=== PATIENT | female | born 1990 | race Caucasian/White ===

== ENCOUNTER 2017-03-15 20:30 | Emergency (ER) | payer MEDICAID ==
[~2017-03-15] VITALS: Ht 154.9 cm; Wt 103.3 kg
[2017-03-15] MEDS ORDERED: ACET325T9 PO (20:49)
--- NOTE | 2017-03-15 22:15 | PHYS DOC ---
Past History Past Medical History: Hypothyroid Past Surgical History: No Surgical History Alcohol Use: None Drug Use: None Adult General Chief Complaint Chief Complaint: FOREIGNBODY EAR HPI HPI 26-year-old female who states she had a bug crawl in her right ear and subsequently in October now presents the emergency department complaining of having a bug in her ear for 4 months. Patient states she put a Q-tip in her ear today and he came out with a bug leg on it, so she decided it was time to come to the emergency department to get it removed. Patient has no symptoms and it only became an issue today because she saw what she thought was a bug's leg on the Q-tip after using it. She denies drainage or pain Review of Systems Review of Systems Constitutional: Denies fever or chills [] Eyes: Denies change in visual acuity, redness, or eye pain [] HENT: Denies nasal congestion or sore throat [] Respiratory: Denies cough or shortness of breath [] Cardiovascular: No additional information not addressed in HPI [] GI: Denies abdominal pain, nausea, vomiting, bloody stools or diarrhea [] : Denies dysuria or hematuria [] Musculoskeletal: Denies back pain or joint pain [] Integument: Denies rash or skin lesions [] Neurologic: Denies headache, focal weakness or sensory changes [] Endocrine: Denies polyuria or polydipsia [] Allergies Allergies Allergies Coded Allergies Type Severity Reaction Last Updated Verified No Known Drug Allergies 03/15/17 No Physical Exam Physical Exam Alert well-appearing patient no acute distress. Left EAC and TM normal. Right EAC with what appears to be a small insect cockroach foreign body but no erythema or drainage or exudate within the external auditory canal. Normal TM. Insect is against the TM and impacted with wax and appears hardened. Insect appears embedded in chronic cerumen impaction. No drainage from the EAC and nontender right mastoid. Supple neck with no nodes Constitutional: Well developed, well nourished, no acute distress, non-toxic appearance. [] HENT: Normocephalic, atraumatic,oropharynx moist, no oral exudates, nose normal. [] Eyes: PERRLA, EOMI, conjunctiva normal, no discharge. [] Neck: Normal range of motion, no tenderness, supple, no stridor. [] Cardiovascular:Heart rate regular rhythm, no murmur [] Lungs & Thorax: Bilateral breath sounds clear to auscultation [] Abdomen: Bowel sounds normal, soft, no tenderness, no masses, no pulsatile masses. [] Skin: Warm, dry, no erythema, no rash. [] Back: No tenderness, no CVA tenderness. [] Extremities: No tenderness, no cyanosis, no clubbing, ROM intact, no edema. [] Neurologic: Alert and oriented X 3, normal motor function, normal sensory function, no focal deficits noted. [] Psychologic: Affect normal, judgement normal, mood normal. [] Current Patient Data Vital Signs Vital Signs Date Time Temp Pulse Resp B/P (MAP) Pulse Ox O2 Delivery O2 Flow Rate FiO2 03/15/17 20:30 98.6 75 20 98 Room Air EKG EKG [] Radiology/Procedures Radiology/Procedures [] Course & Med Decision Making Course & Med Decision Making Pertinent Labs and Imaging studies reviewed. (See chart for details) Patient with an insect in her ear for 4 months as well as cerumen impaction against the TM. Emergent removal not clinically indicated and position of impaction against TM at high risk for potential damage during procedure. Referred patient to ENT for evaluation outpatient treatment in the office with specialty equipment and the benefit of specialty care. No further workup or treatment indicated in the emergency department. Patient and significant other agree with outpatient follow-up and strict return precautions given [] Dragon Disclaimer Dragon Disclaimer This chart was dictated in whole or in part using Voice Recognition software in a busy, high-work load, and often noisy Emergency Department environment. It may contain unintended and wholly unrecognized errors or omissions. Departure Departure: Impression: Primary Impression: Foreign body of ear, right Disposition: HOME, SELF-CARE Condition: STABLE Referrals: PCP,NO (PCP) Additional Instructions: You have an insect foreign body against your eardrum. As you described, it's been there since October. There are no signs of infection of your external ear canal. Follow-up with ear nose and throat for removal of the insect as well as the wax around it. Call [facility] ear nose and throat [place] in the morning at [phone] for appointment. NORMAN LOZANO MD Mar 15, 2017 22:15
[2017-03-15 22:25] VITALS: BP 110/70
== END 2017-03-15 22:25 | disposition home or self-care (01) ==
LOC: ER 20:30
DX: T16.1XXA Foreign body in right ear, initial encounter (principal); E03.9 Hypothyroidism, unspecified; X58.XXXA Exposure to other specified factors, initial encounter; Y93.89 Activity, other specified; Y99.8 Other external cause status; Y92.89 Other specified places as the place of occurrence of the external cause
CPT/HCPCS: 99281

== ENCOUNTER 2017-04-19 13:30 | Emergency (ER) | payer SELFPAY ==
[~2017-04-19] VITALS: Ht 160 cm; Wt 104.8 kg
[~2017-04-19 13:30] MED LIST: ACET325T9 PO
[2017-04-19 13:50] VITALS: BP 128/70
[2017-04-19] MEDS ORDERED: HYDROcodone/APAP 5/325MG 1 TAB TABLET PO ONE (14:45)
[2017-04-19] MEDS ORDERED: LIDOCAINE 1% Multi-Dose 20 ML VIAL. IJ ONE (14:45)
--- NOTE | 2017-04-19 14:53 | PHYS DOC ---
Past History Past Medical History: No Pertinent History Past Surgical History: No Surgical History Additional Smoking Information: 1pack/day Alcohol Use: None Drug Use: None Adult General Chief Complaint Chief Complaint: ABSCESS HPI HPI Patient is a 26] year old female] who presents with [skin abscess.] Patient complaining of erythema and pain in left axillary area for the last 2 days and drainage of pus since this morning with severe pain. Patient states she had the same problem about 6 months ago and had drainage of abscess in [place]. Patient did not have confirmed diagnoses of MRSA. Patient denies fever and chills, focal neuro deficit, sick contacts, . Review of Systems Review of Systems Constitutional: Denies fever or chills [] Eyes: Denies change in visual acuity, redness, or eye pain [] HENT: Denies nasal congestion or sore throat [] Respiratory: Denies cough or shortness of breath [] Cardiovascular: No additional information not addressed in HPI [] GI: Denies abdominal pain, nausea, vomiting, bloody stools or diarrhea [] : Denies dysuria or hematuria [] Musculoskeletal: Denies back pain or joint pain [] Integument: Reports skin lesions /abscess[] Neurologic: Denies headache, focal weakness or sensory changes [] Endocrine: Denies polyuria or polydipsia [] All other systems were reviewed and found to be within normal limits, except as documented in this note. Current Medications Current Medications Current Medications Medications (Trade) Dose Ordered Sig/Geno Start Time Stop Time Status Last Admin Dose Admin Acetaminophen/ Hydrocodone Bitart (Lortab 5/325) 2 tab 1X ONCE 04/19/17 14:45 04/19/17 14:46 UNV Lidocaine HCl 20 ml 1X ONCE 04/19/17 14:45 04/19/17 14:46 UNV Allergies Allergies Allergies Coded Allergies Type Severity Reaction Last Updated Verified No Known Drug Allergies 03/15/17 No Physical Exam Physical Exam General: Moderate distress, anxious, non-toxic appearance, morbidly obese. [] HENT: Normocephalic, atraumatic, bilateral external ears normal, oropharynx moist, no oral exudates, nose normal. [] Eyes: PERRLA, EOMI, conjunctiva normal, no discharge. [] Neck: Normal range of motion, no tenderness, supple, no stridor. [] Cardiovascular:Heart rate regular rhythm, no murmur [] Lungs & Thorax: Bilateral breath sounds clear to auscultation [] Skin: 5 x 5 cm left subaxillary erythema and induration with central puncture wound and drainage of pus Back: No tenderness, no CVA tenderness. [] Extremities: No tenderness, no cyanosis, no clubbing, ROM intact, no edema. [] Neurologic: Alert and oriented X 3, normal motor function, normal sensory function, no focal deficits noted. [] Psychologic: anxious Current Patient Data Vital Signs Vital Signs Date Time Temp Pulse Resp B/P (MAP) Pulse Ox O2 Delivery O2 Flow Rate FiO2 04/19/17 13:50 98.1 85 16 97 Room Air EKG EKG [] Radiology/Procedures Radiology/Procedures [] Course & Med Decision Making Course & Med Decision Making [] Dragon Disclaimer Dragon Disclaimer This electronic medical record was generated, in whole or in part, using a voice recognition dictation system. Departure Departure: Impression: Primary Impression: Abscess of axillary region Additional Impression: Suspected carrier of methicillin resistant Staphylococcus aureus (MRSA) Disposition: HOME, SELF-CARE (At 1624) Condition: IMPROVED Referrals: PCP,NO (PCP) Additional Instructions: Return to the emergency room in 48 hours for recheck the wound and removing the packing Scripts Hydrocodone Bit/Acetaminophen (NORCO 5-325 TABLET) 1 Each Tablet 1-2 TAB PO Q4-6HRS for 5 Days, #15 TAB Prov: ANJALI VILA MD 04/19/17 Sulfamethoxazole/Trimethoprim (BACTRIM DS TABLET) 1 Each Tablet 1 TAB PO BID, #14 TAB Prov: ANJALI VILA MD 04/19/17 Incision and Drainage Indication: [INDICATION:] Subaxillary abscess left side Procedure: The patient was positioned appropriately and the skin over the incision site was [PREP FOR PROCEDURE:]. Local anesthesia was [ANESTHESIA:]. Lidocaine 1% 5 ml An incision was then made over the [INCISION SITE:]left subaxillary area and [DRAINAGE AMT:] moderate amount of pus material was expressed. Loculations were cleaned [LOCULATIONS:]. The drainage cavity was then irrigated with normal saline[CAVITY DISP:]. The patients tetanus status [ TETANUS STATUS:].is up to date The patient tolerated the procedure well[TOLERATED:]. Complications: [COMPLICATIONS:]none Problem Qualifiers ANJALI VILA MD Apr 19, 2017 14:53
[2017-04-19] MEDS ORDERED: HYDR-971 PO (16:27)
[2017-04-19] MEDS ORDERED: SULF1TAB24 PO (16:27)
== END 2017-04-19 16:44 | disposition home or self-care (01) ==
LOC: ER 13:30
DX: L02.412 Cutaneous abscess of left axilla (principal); Z22.322 Carrier or suspected carrier of Methicillin resistant Staphylococcus aureus; F17.210 Nicotine dependence, cigarettes, uncomplicated
CPT/HCPCS: 10060; 99283-25